=== PATIENT | female | born 2000 | race Caucasian/White ===

== ENCOUNTER → 2024-12-30 | Outpatient (CLI) | payer SELFPAY ==
[2024-12-30 16:46] LABS: Hemoglobin A1c 4.2 % (3.8-5.6)
[2024-12-30 22:07] LABS: ALB/GLOB Ratio 0.9 RATIO (0.9-2.4); AST(SGOT) 21 U/L (15-37); Alanine Aminotransfer ALT/SGPT 23 U/L (13-56); Albumin, Serum 3.6 g/dL (3.2-5.0); Alkaline Phosphatase 39 U/L (45-117); Anion Gap 7 (5-15); BUN 17 mg/dL (7-18); BUN/Creat Ratio 22.3 RATIO (10-20); Calcium,Total 8.8 mg/dL (8.5-10.1); Chloride 107 mmol/L (98-107); Cholesterol 171 mg/dL (200); Creatinine, Serum 0.76 mg/dL (0.55-1.02); EST Glomerular Filtration Rate 97 mL/min (>60); Est Glom Filt Rate - Afr Amer 118 mL/min (>60); Estradiol 28.5 pg/mL; Follicle Stimulating Hormone 5.6 mIU/mL; Globulin 4.1 g/dL (2.2-4.2); Glucose 84 mg/dL (74-106); High Density Lipoprotein 63 mg/dL; Luteinizing Hormone 4.2 mIU/mL; Potassium 3.9 mmol/L (3.5-5.1); Protein, Total 7.7 g/dL (6.4-8.2); Sodium Level 138 mmol/L (136-145); Triglycerides 54 mg/dL; Very Low Density Lipoprotein 11 mg/dL (5-40)
[2025-01-01 10:09] LABS: PROGESTERONE 0.1 ng/mL (.)
[2025-01-06 02:07] LABS: PROLACTIN 30.9 ng/mL (4.8-33.4); Testosterone Free 0.3 pg/mL (0.0-4.2)
== END | disposition home or self-care (01) ==
PROVIDERS: Referring Provider Nurse Practitioner Family; Visit Provider Nurse Practitioner Family
DX: Z31.9 Encounter for procreative management, unspecified (principal)
CPT/HCPCS: 36415; 80053; 80061; 82627; 82670; 83001; 83002; 83036; 84144; 84146; 84402; 84443; 82626

== ENCOUNTER → 2025-01-17 | Outpatient (CLI) | payer OTHER, SELFPAY | END | disposition home or self-care (01) | PROVIDERS: Referring Provider Nurse Practitioner Family; Visit Provider Nurse Practitioner Family | DX: Z31.9 Encounter for procreative management, unspecified (principal) | CPT/HCPCS: 36415; 84144 ==

== ENCOUNTER → 2025-02-01 | Outpatient (CLI) | payer SELFPAY ==
--- NOTE | 2025-02-01 11:40 | US_ITS ---
PROCEDURE: PELVIC W/ TRANSVAGINAL REASON FOR EXAM: INFERTILITY TECHNIQUE: Transabdominal and transvaginal pelvic ultrasound COMPARISON: None. FINDINGS: Measurements: Uterus: 7.7 cm x 5.1 cm x 4.4 cm with a volume of 91.25 mL Endometrial Thickness: 7 mm Right Ovary: 3 cm x 2.6 cm x 1.8 cm with a volume of 7.4 mL. Left Ovary: 3.6 cm x 3.6 cm x 3.1 cm with a volume of 21.3 mL. TRANSABDOMINAL: Uterus: Normal size, myometrial echotexture, and contour. Endometrium: Unremarkable. Right ovary: Normal size and echotexture. Left ovary: Normal size and echotexture. No large pelvic mass identified. Transvaginal sonography was performed to better visualize the endometrium. TRANSVAGINAL: Uterus: Anteverted. Normal contour and myometrial echotexture. Endometrium: Normal echotexture. Right ovary: Normal size and echotexture. Left ovary: Normal size and echotexture. Other adnexal findings: None. Cul-de-sac: No free intraperitoneal fluid identified. No tenderness. US/Pelvic w/ Transvaginal IMPRESSION: NORMAL TRANSABDOMINAL AND TRANSVAGINAL PELVIC ULTRASOUND. Reading Location: [place] [id number]
--- NOTE | 2025-02-01 11:48 | RAD_ITS ---
PROCEDURE: SALPINGOGRAM REASON FOR EXAM: HSG FOR INFERTILITY TECHNIQUE: Two views of the pelvis. COMPARISON: None FINDINGS: Contrast was injected. The uterus is unremarkable. Both fallopian tubes were visualized with bilateral spill. RAD/Salpingogram IMPRESSION: Normal hysterosalpingogram. Reading Location: [facility]
--- NOTE | 2025-02-07 07:38 | OP.PCM_ITS ---
Problems Associated Problem List Diagnoses (1) Infertility, female: (2) Infertility management: Multi Select Codes Urinary/Genital Urinary/Genital CPT Codes: 91585 HSG/SIS Operative Report (Standard) Operative Information Date of Procedure: 02/07/25
--- NOTE | 2025-02-07 07:38 | PCM.OPRPT ---
Problems Associated Problem List Diagnoses (1) Infertility, female: (2) Infertility management: Multi Select Codes Urinary/Genital Urinary/Genital CPT Codes: 66401 HSG/SIS Operative Report (Standard) Operative Information Date of Procedure: 02/01/25 Pre-Operative Diagnosis: infertility Post-Operative Diagnosis: same plus patent tubes Surgery/Procedure Performed: HSG water restoration technician: No Type of Anesthesia: None Procedure Start Time: 12:30 Procedure Stop Time: 12:40 Select all DRAINS/GRAFTS/IMPLANTS that apply: None Estimated Blood Loss: 0 Specimen collected: No Description of surgery: Procedure: Hysterosalpingogram Surgeon: Aline Fernandez Implantable devices: None Complications: None Findings: Bilateral tubal patency and normal uterine cavity Operative details: Patient was taken to the x-ray room and was placed on the x-ray table and was in the dorsal lithotomy position. Speculum was placed in the vagina and the cervix prepped with Betadine and the HSG catheter was easily introduced into the uterus and speculum removed. Radiologist was brought in and while pushing radiopaque dye into the uterus via the HSG catheter the radiologist took multiple images and views and confirmed bilateral tubal patency seen. No gross uterine filling defects or abnormalities were seen. All instruments removed from the vagina and the uterus without complication. Patient tolerated the procedure well. Surgical Findings: patent tubes nl cavity Complications Complications: No
== END | disposition home or self-care (01) ==
PROVIDERS: Referring Provider Nurse Practitioner Family; Visit Provider Nurse Practitioner Family
DX: N97.9 Female infertility, unspecified (principal); Z31.9 Encounter for procreative management, unspecified
CPT/HCPCS: 58340; 74740; 76830; 76856; Q9967